=== PATIENT | male | born 1965 | race Caucasian/White ===

== ENCOUNTER → 2016-10-09 | Outpatient (CLI) | payer BC ==
--- NOTE | 2016-10-09 08:29 | MR ---
EXAMINATION TYPE: MR knee LT wo con DATE OF EXAM: 10/09/2016 8:20 AM COMPARISON: NONE HISTORY: medial meniscus tear, mcl tear, acl tear, pain since 09-25-16 TECHNIQUE: Multiplanar, multisequence imaging of the knee is performed without IV contrast. FINDINGS: MEDIAL MENISCUS: Medial meniscus demonstrates no diagnostic evidence of tear. LATERAL MENISCUS: There appears be a pseudoextrusion of the posterior horn of the medial meniscus. In trasubstance signal within the anterior and posterior horn is seen since compatible with tear. CRUCIATE LIGAMENTS: Is a complete tear of the anterior cruciate ligament. There is thickening and int rasubstance signal within the posterior cruciate ligament compatible with partial intrasubstance tear . COLLATERAL LIGAMENTS: There is a full-thickness tear involving the proximal portion of the MCL. Adjac ent marrow edema noted. There is increased signal involving the femoral attachment of the lateral col lateral ligament. No through thickness tear. EXTENSOR MECHANISM: Visualized quadriceps and patellar tendons are intact. EFFUSION: There is a sizable fluid collection within the suprapatellar bursa. POPLITEAL CYST: No popliteal/gomez cyst. TRICOMPARTMENT SPACES: Hypertrophic change and narrowing of patellofemoral joint and knee joint cesar tible osteoarthritis. No erosive changes. 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 BONE MARROW SIGNAL: Large area of marrow edema or contusion involving the lateral tibial plateau. Add itional area of marrow edema involving the lateral femoral condyle. No definite fracture line. IMPRESSION: 1. ACL complete tear with findings compatible with thickening and intrasubstance signal within the PC L suggestive of partial intrasubstance tear. 2. MCL complete tear 3. Lateral meniscal anterior and posterior horn tear with pseudoextrusion of the posterior horn. 4. Marrow edema involving the lateral tibial plateau and lateral femoral condyle likely reactive post ligamentous tear. No definite fracture line. 5. Osteoarthritis. 6. Proximal femoral attachment LCL strain with no through thickness tear.
== END | disposition home or self-care (01) ==
LOC: RADMRIMAIN 07:32
PROVIDERS: ATTEND Orthopaedic Surgery
DX: S83.512A Sprain of anterior cruciate ligament of left knee, initial encounter (principal); S83.412A Sprain of medial collateral ligament of left knee, initial encounter; S83.422A Sprain of lateral collateral ligament of left knee, initial encounter; M17.12 Unilateral primary osteoarthritis, left knee; R93.7 Abnormal findings on diagnostic imaging of other parts of musculoskeletal system; M25.862 Other specified joint disorders, left knee

== ENCOUNTER → 2021-06-06 | Outpatient (CLI) | payer BC | END | disposition home or self-care (01) | LOC: LABPAT 10:56 | PROVIDERS: ATTEND Orthopaedic Surgery | DX: Z01.812 Encounter for preprocedural laboratory examination (principal); Z22.322 Carrier or suspected carrier of Methicillin resistant Staphylococcus aureus; M16.11 Unilateral primary osteoarthritis, right hip | CPT/HCPCS: 87070 ==

== ENCOUNTER 2021-06-16 08:58 | Day surgery (SDC) | payer BC ==
[2021-06-11 12:34] VITALS: BMI 32.7
--- NOTE | 2021-06-15 13:46 | HP ---
HISTORY AND PHYSICAL DATE OF SURGERY: 06/16/2021 Mikal Delgadillo is a 55-year-old patient seen with symptomatic right hip osteoarthritis. Treatment options were discussed with him. He elected to proceed with right total hip arthroplasty via direct anterior approach. Consent was obtained. Medical clearance was provided by Dr. Crowell. PAST MEDICAL HISTORY: Hyperlipidemia, gru-[id number] diabetes. PAST SURGICAL HISTORY: Cholecystectomy, left knee arthroscopy. DAILY MEDICATIONS: Atorvastatin, metformin. ALLERGIES: NONE REPORTED. SOCIAL HISTORY: He denies tobacco use. PHYSICAL EVALUATION OF THE RIGHT HIP: His range of motion is severely limited with severe pain. Impingement sign is positive. Diffuse tenderness about the hip girdle. Straight-leg raise negative. Distal neurovascular exam is intact. Radiographs of the right hip reveal severe osteoarthritic changes. IMPRESSION: 1. Right hip osteoarthritis. 2. Hyperlipidemia. 3. [id number] diabetes. PLAN: Direct anterior right total hip arthroplasty. MMODL / IJN: [id number] /
[~2021-06-16 08:58] MED LIST: ACETAMINOPHEN TAB 500 MG TAB PO PRN; DEXAMETHASONE SOD PHOSPHATE 4 MG/ML 1 ML VIAL IV ONE; HYDROmorphone 0.5 MG/0.5 ML SYRINGE IVP PRN; LACTATED RINGERS 1,000 ML IV SCH; LIDOCAINE 1% (10MG/ML) FOR IV START INTRADERMA PRN; MELOXICAM 7.5 MG TAB PO PRN; MIDAZOLAM 2 MG/2 ML VIAL IV PRN; ONDANSETRON 4 MG/2 ML VIAL IVP ONE; ROPIVACAINE 246.25 MG, EPINEPHrine 0.5 MG, KETOROLAC (30 mg/mL) 30 MG, cloNIDine HCL/PF... MISCELLANE PRN; TRANEXAMIC ACID 1,000 MG in SODIUM CHLORIDE 0.9% 100 ML IVPB PRN
[2021-06-16 10:01] LABS: Glucose,Whole Blood 96 mg/dL (75-99)
[2021-06-16] MEDS ORDERED: MIDAZOLAM 2 MG/2 ML VIAL ONE (10:02)
[2021-06-16] MEDS ORDERED: SODIUM CHLORIDE 0.9% 100 ML BAG ONE (10:02)
[2021-06-16] MEDS ORDERED: SUCCINYLCHOLINE CHLORIDE 100 MG/5 ML SYR IV ONE (10:02)
[2021-06-16] MEDS ORDERED: ROCURONIUM 10 MG/ML (5 ML VIAL) IV ONE (10:02)
[2021-06-16] MEDS ORDERED: LIDOCAINE 1% INJ 10MG/ML (20 ML MDV) ONE (10:02)
[2021-06-16] MEDS ORDERED: GLYCOPYRROLATE 0.2 MG/ML 2 ML VIAL ONE (10:02)
[2021-06-16] MEDS ORDERED: NEOSTIGMINE 1 MG/ML 10 ML VIAL ONE (10:02)
[2021-06-16] MEDS ORDERED: PROPOFOL 10 MG/ML 20 ML VIAL IV ONE (10:02)
[2021-06-16] MEDS ORDERED: TRANEXAMIC ACID 1,000 MG/10 ML VIAL ONE (10:02)
[2021-06-16] MEDS ORDERED: ePHEDrine 50 MG/ML 1 ML AMP ONE (10:02)
[2021-06-16] MEDS ORDERED: .fentaNYL (PF) 50 MCG/ML 2 ML AMP ONE (10:02)
[2021-06-16] MEDS ORDERED: ceFAZolin 1,000 MG in SODIUM CHLORIDE 0.9% 1,000 ML IRRIGATION ONE (10:32)
[2021-06-16] MEDS ORDERED: HYDROmorphone 0.5 MG/0.5 ML SYRINGE IVP PRN (11:40)
[2021-06-16] MEDS ORDERED: ONDANSETRON 4 MG/2 ML VIAL IVP PRN (11:40)
[2021-06-16] MEDS ORDERED: HYDROmorphone 0.2 MG/1 ML SYRINGE IVP PRN (11:40)
[2021-06-16] MEDS ORDERED: NALOXONE 0.4 MG/ML 1 ML VIAL IV PRN (11:40)
[2021-06-16] MEDS ORDERED: HYDROcodone/APAP 5-325MG 1 EACH TAB PO PRN ×2 (11:40)
[2021-06-16] MEDS ORDERED: LACTATED RINGERS 1,000 ML IV ONE (11:40)
[2021-06-16] MEDS ORDERED: HYDROmorphone 1 MG/ML 1 ML SYRINGE IVP PRN (11:40)
--- NOTE | 2021-06-16 11:40 | P.OP ---
Date of Procedure: 06/16/21 Preoperative Diagnosis: Right hip osteoarthritis Postoperative Diagnosis: Right hip osteoarthritis Procedure(s) Performed: Direct anterior right total hip arthroplasty Implants: 1. [place] KA size 13 standard collar press-fit femoral stem 2. [place] pinnacle 56 mm press-fit acetabular shell 3. [place] pinnacle neutral polyethylene acetabular liner 36 mm ID 56 mm OD 4. [employer] delta ceramic femoral head +8.5 36 mm Anesthesia: ASHWINIA, local Surgeon: Gordo Roman Production Or Plant Engineer #1: Jayesh Arana Estimated Blood Loss (ml): 75 Pathology: other (Femoral head) Condition: stable Disposition: PACU Indications for Procedure: 55-year-old patient seen with symptomatic right hip osteoarthritis. After treatment options were discussed, he elected to proceed with total hip arthroplasty. Operative Findings: see description of procedure Description of Procedure: The patient was taken to the operative suite. Patient underwent a general anesthetic by the department of anesthesia. Patient was then transferred to the [place] table. Patient was given preoperative IV antibiotics and TXA. Both lower extremities were placed in standard leg spars. The hip was then prepped and draped in the normal sterile orthopedic fashion. A standard anterior incision was made beginning 3 cm lateral and 1 cm distal to the ASIS extending 10 cm. Dissection was then carried down through the subcutaneous soft tissues down to the fascia overlying the tensor fascia carlene. An incision was now made through the fascia. Careful dissection was taken down exposing the tensor fascia carlene muscle. A Cobra retractor was now placed along the medial femoral neck and a second one along the lateral femoral neck. The venous circumflex vessels were now identified, cauterized and clipped. We identified the anterior hip capsule. An incision was made through the hip capsule along the lateral border. I performed a partial anterior capsulectomy. Retractors were now placed around the femoral neck itself. A femoral neck cut was now made with a sagittal saw. It was completed with an osteotome at the lateral neck area. The femoral head was now removed without difficulty. The extremity was now rotated to 60 of external rotation. It was locked in position. Residual labrum was now debrided out. Serial reaming was performed of the acetabulum while Eliel PENA assisted holding an anterior retractor for exposure. Once we reached the appropriate size and a trial was position and fit nicely. The appropriate size was now chosen opened and made available. It was introduced into the acetabulum without difficulty. The C-arm/fluoroscopy was now brought into the operative field. We made sure we had a true AP pelvic view. We now under direct C- arm/fluoroscopy introduced into the acetabular component with appropriate version and inclination. I held the cup in appropriate position well Eliel PENA used a mallet to seat the acetabular component. I noted the component now to be well seated and stable. Acetabular cup introduce her was removed. The C-arm was pulled back. An appropriate liner was introduced and clicked into position. It was felt to be stable. At this point retractors were removed. The extremity was now placed into 135 external rotation with no traction. The leg was now dropped to the ground and adducted. Appropriate retractors were now positioned along the proximal femur. We also placed our femoral look into position. Additional capsular releasing was performed to gain access to the proximal femur. We now used a box osteotome. A canal finder was now utilized. Serial broaching was now performed with the assistance of Eliel PENA tapping the broaches down with a mallet while held the broach in appropriate rotation and position. This was done until we reached the appropriate size with good overall rotational stability. Appropriate calcar planing was performed. A trial head/neck was placed into position. The hip was now reduced. The C- arm/fluoroscopy was brought back into the operative field. I obtained an AP pelvis which revealed reasonable leg length alignment as well as adequate sizing and positioning of the components The C-arm/fluoroscopy was pulled back. Retractors were repositioned and the hip was dislocated. The leg was again taken down to the ground and adducted. Appropriate retractors were repositioned as well as the femoral hook. All trial components were removed. The femoral implant was opened along with the femoral head. The femoral implant was introduced on the appropriate handle into our pre-broached area. I held the component position well Eliel PENA used a mallet to seat the femoral component. The femoral component was now noted to be well seated and stable.. The femoral head was introduced with good positioning and fixation noted. Retractors were now removed. The hip was now reduced. There appeared be good positioning of the hip confirmed on intraoperative fluoroscopy. Spot films were obtained to document this. A second gram of TXA was given. The deep and superficial soft tissues were infiltrated with local analgesic. Bipolar cautery had been utilized intermittently through the procedure for hemostasis. The wound was irrigated copiously with pulse lavage mechanical irrigation. The fascia was repaired with Vicryl suture. The subcutaneous soft tissues were repaired in layers with Vicryl suture. The skin was approximated with pernio/Dermabond. Sterile dressings were applied. Patient was then awakened, transferred to a bed and taken to recovery in stable condition. Eliel PENA assisted with the complex procedure.
--- NOTE | 2021-06-16 11:53 | XR ---
Fluoroscopy INDICATION: Pain FINDINGS: Fluoroscopy time: 14 seconds. Images obtained: 2. IMPRESSIONS: 1. Documentation of fluoroscopy.
[2021-06-16 12:03] VITALS: TEMP 96.8
[2021-06-16 12:59] LABS: Glucose,Whole Blood 143 mg/dL (75-99)
[2021-06-16 14:26] VITALS: RESP 18
--- NOTE | 2021-06-16 14:36 | FL ---
Fluoroscopy HISTORY: Right hip replacement 14 seconds fluoroscopy time supplied to the referring clinician. 2 intraoperative C-arm images docum ent the procedure. See dictated report from orthopedic surgery.
[2021-06-16 15:37] VITALS: BP 115/75; PULSE 56
== END 2021-06-16 16:31 | disposition home health service (06) ==
LOC: OR 08:58
PROVIDERS: ATTEND Orthopaedic Surgery
DX: M16.11 Unilateral primary osteoarthritis, right hip (principal); E11.9 Type 2 diabetes mellitus without complications; E78.00 Pure hypercholesterolemia, unspecified; K21.9 Gastro-esophageal reflux disease without esophagitis; K22.70 Barrett's esophagus without dysplasia; E78.5 Hyperlipidemia, unspecified; Z90.49 Acquired absence of other specified parts of digestive tract; Z98.890 Other specified postprocedural states; Z79.84 Long term (current) use of oral hypoglycemic drugs; Z79.899 Other long term (current) drug therapy; Z88.8 Allergy status to other drugs, medicaments and biological substances
CPT/HCPCS: 97110; 97161; 86900; 86901; 86850; 88300; 73501; 36415; 27130; C1776; J2250; J0171; J2710; J0690 ×2; J2405; J2001; J3010; J1885; J2795; J0330; J2704; J0735; J1170